=== PATIENT | female | born 1950 | race Caucasian/White ===

== ENCOUNTER → 2021-04-17 | Outpatient (CLI) | payer MEDICARE, MEDICAID ==
[2021-04-17 16:14] LABS: BLOOD UREA NITROGEN 12 MG/DL (7-18); CALCIUM LEVEL 9.7 MG/DL (8.8-10.2); CARBON DIOXIDE LEVEL 29 MEQ/L (21-32); CHLORIDE LEVEL 108 MEQ/L (98-107); CREATININE FOR GFR 0.87 MG/DL (0.55-1.30); FREE T4 1.32 NG/DL (0.76-1.46); GLOMERULAR FILTRATION RATE > 60.0 (>45); GLUCOSE, FASTING 93 MG/DL (70-100); POTASSIUM SERUM 4.2 MEQ/L (3.5-5.1); PROLACTIN 7.8 NG/ML; SODIUM LEVEL 142 MEQ/L (136-145)
== END ==
LOC: M PLALAB 11:16
PROVIDERS: ATTEND Surgery
DX: N64.52 Nipple discharge (principal); Z79.899 Other long term (current) drug therapy

== ENCOUNTER → 2021-05-15 | Outpatient (CLI) | payer MEDICARE, MEDICAID ==
[~2021-05-15] MED LIST: PROHANCE 279.3MG/ML 15ML VIAL As Ordered ONE
--- NOTE | 2021-05-16 16:02 | REP ---
INDICATION: ABN LT MAMMO, DISCHARGE LT NIPPLE. COMPARISON: Mammograms 03/24/2021, 01/03/2021, 12/22/2019, 12/14/2019, 07/15/2018. TECHNIQUE: Three Dot MRI imaging was performed with a dedicated breast coil. Axial, coronal, and sagittal T1 and T2 weighted scans were obtained with and without fat saturation in the usual fashion. The study includes dynamically acquired post gadolinium-enhanced imaging with image subtraction. Maximum intensity projection and multi planar reformation imaging is included as well. This study is interpreted with the aid of Sound [employer], an FDA approved computer aided detection (CAD) software program, on a dedicated breast MRI workstation. The gadolinium enhancement dose is 15 mL of intravenous ProHance. FINDINGS: Moderate fibroglandular tissue is present. No axillary adenopathy is seen bilaterally. A few tiny cysts are seen bilaterally. There is moderate background parenchymal enhancement bilaterally. In the outer aspect of the left breast posteriorly at the level of the nipple (3 o'clock) there is an oval area of spiculated masslike enhancement measuring 10 x 17 x 7 mm. Linear areas of enhancement radiate from this irregular masslike enhancement. The enhancement is mixed persistent, plateau and washout. In the more superior upper outer quadrant of the left breast there are a few areas of linear, ductal somewhat nodular enhancement. A similar area of enhancement is seen within a dilated left retroareolar duct. Correlating with the mammogram, these areas of abnormal enhancement correspond to areas of diffuse pleomorphic, ductal microcalcifications which appear mammographically suspicious. No suspicious abnormality is seen in the right breast. There is a 1.5 cm cyst in the anterior right lobe of the liver in a subcapsular location. IMPRESSION: BI-RADS category 4, suspicious. Posteriorly in the left breast at the 3 o'clock position there is an oval area of spiculated masslike enhancement measuring 10 x 17 x 7 mm. This corresponds to an area on the recent mammogram which demonstrates some architectural distortion and multiple innumerable clustered pleomorphic ductal microcalcifications. There are a few other areas of nodular ductal enhancement throughout the remaining upper outer quadrant of the left breast, including the left retroareolar region within a mildly dilated duct. The mammogram also shows scattered suspicious pleomorphic ductal microcalcifications throughout the upper outer quadrant of the left breast. <Electronically signed by Rafi Morales > 05/16/21 [id number]
== END ==
LOC: M RAD 12:54
PROVIDERS: ATTEND Surgery
DX: R92.8 Other abnormal and inconclusive findings on diagnostic imaging of breast (principal); N64.52 Nipple discharge
CPT/HCPCS: A9576; C8908

== ENCOUNTER → 2021-05-28 | Outpatient (CLI) | payer MEDICARE, MEDICAID ==
[~2021-05-28] MED LIST changes: +AMLO1TAB25 PO; +ASPI81CH33 PO; +ATOR40TA75 PO; +CALCTAB89 PO; +FAMO20TA PO; +FLON1SPR NARES; +IBAN150T6 PO; +LOSA100T50 PO; +MECL-136 PO; +MELO15TA28 PO; +METO100T5 PO; +PANT40TA29 PO; +POTA1TAB14 PO; -PROHANCE 279.3MG/ML 15ML VIAL As Ordered ONE; +REST0.05 OP; +TRAZ-252 PO; +VENTAER INH
[2021-05-28 14:42] VITALS: BP 144/72
--- NOTE | 2021-06-01 00:48 | ROOPDOC ---
[facility] Report Of Operation Report of Operation DATE OF PROCEDURE: 05/28/2021 DIAGNOSIS: Left breast suspicious calcifications PROCEDURE: Left breast stereotactic biopsy x2 with clips placement SURGEON: Luis Lord BLOOD LOSS: minimal Lidocaine 1% LOT [id number] Expiration 09/2024 Sodium Bicarbonate 8.4% LOT [id number] Expiration 08/2021 LEFT LATERAL POSTERIOR BIOPSY Hydromark clip LOT [id number] Expiration 09/2023 SHAPE: 3 Bx device: Stereotactic Mammotome Revolve Dual Vacuum- assisted Biopsy System 10 G LOT [id number] Expiration 02/2017 REF [id number] LEFT LATERAL ANTERIOR BIOPSY Hydromark clip LOT [id number] Expiration 09/2023 SHAPE: 1 Bx device: Stereotactic Mammotome Revolve Dual Vacuum- assisted Biopsy System 10 G LOT [id number] Expiration 03/2024 REF [id number] Informed consent was obtained in the preop area. The most common risk and possible complications including bleeding, hematoma, bruising, infection, injury to surrounding structures were explained to the patient and patient expressed understanding. Patient was taken to the procedure room and placed prone on the [employer] [facility] Prone Breast Biopsy table with the left breast hanging through the table o pening. Left breast was placed into Cranio-Caudal compression and 3Rd Pressman iglesia images were taken. Suspicious calcifications were identified on the iglesia images. We previously agreed that two different areas will be biopsied. Procedure was started with left lateral posterior calcification area. A target was set. CC approach from the bottom was chosen for this procedure. At this time, since we were able to confirm visibility of the suspicious calcifications and patient tolerated prone positioning allowing to proceed with the biopsy, appropriate time out was done stating patients name, date of , and the procedure to be performed. The left breast in CC compression was prepped in the usual fashion. Plain Lidocaine 1% and 8.4% sodium bicarbonate 10:1 mix was used to anesthetize the skin, the biopsy site and tissues along the anticipated biopsy tract. Small skin incision was made with blade number 11. Mammotome 10 G stereotactic breast biopsy device was inserted through the incision and advanced to the pre viously set coordinates marking the target lesion. Pre-fire imaging was taken to assure appropriate positioning. At this time, Mammotome 10 G breast biopsy device was fired and six vacuum assisted biopsies were collected. The biopsy samples were investigated with [employer] system and calcifications were observed. Biopsy samples were then placed in the formaldehyde, marked with patients name and left lateral posterior breast biopsy site, and sent to pathology for evaluation. SHAPE 3 Hydromark clip was placed into the Mammotome biopsy device channel and deployed. Post-deployment imaging was done to assure appropriate clip d eployment. Clip was noted in the left breast at appropriate position. Pressure was held over the biopsy area until hemostasis was obtained. At this point, we set the second target which was anterior. This was nodular and has cluster of calcifications as well. Patient was kept in the previous CC compression. Left breast was re-prepped in the usual fashion. Plain Lidocaine 1% and 8.4% sodium bicarbonate 10:1 mix was used to anesthetize the skin, the biopsy site and tissues along the anticipated biopsy tract. Second small skin incision was made with blade number 11. Mammotome 10 G stereotactic breast biopsy device was inserted through the incision and advanced to the previously set coordinates marking the target lesion. Pre-fire imaging was taken to assure appropriate positioning. At this time, Mammotome 10 G breast biopsy device was fired and six vacuum assisted biopsies were collected. The biopsy samples were investigated with [employer] system and calcifications from the second target lesion were observed. Biopsy samples were then placed in the formaldehyde, marked with patients name and left lateral anterior breast biopsy site, and sent to pathology for evaluation. SHAPE 1 Hydromark clip was placed into the Mammotome biopsy device channel and d eployed. Post-deployment imaging was done to assure appropriate clip deployment. Clip was noted in the left breast at appropriate position. At this point, paddle CC compression of the left breast was released and manual pressure was held to decrease harmonic effect and to assure hemostasis. No bleeding was noted upon removal of the pressure. Patient was slowly repositioned and placed into sitting position, and then assisted off the table. Post-biopsy mammogram of the left breast was obtained and showed two clips in expected positions. Postprocedural dressing was placed. Patient tolerated procedure well and was taken to the recovery unit in stable condition. Discharge instructions were discussed with the patient and patient expressed understanding. LUIS LORD DO Jun 01, 2021 00:48
== END ==
LOC: M WHCPRO 08:10
PROVIDERS: ATTEND Surgery
DX: C50.912 Malignant neoplasm of unspecified site of left female breast (principal)

== ENCOUNTER → 2021-07-14 | Outpatient (CLI) | payer MEDICARE, MEDICAID | LOC: M LABSMTC 11:33 | PROVIDERS: ATTEND Anesthesiology | DX: Z01.818 Encounter for other preprocedural examination (principal); Z11.52 Encounter for screening for COVID-19 ==

== ENCOUNTER → 2021-07-31 | Outpatient (CLI) | payer MEDICARE, MEDICAID ==
[~2021-07-31] MED LIST changes: +LOSA100T45 PO; -LOSA100T50 PO; -REST0.05 OP; +REST0.05 OU
== END ==
LOC: M LABSMTC 09:03
PROVIDERS: ATTEND Anesthesiology
DX: Z01.812 Encounter for preprocedural laboratory examination (principal); Z11.52 Encounter for screening for COVID-19; U07.1 COVID-19

== ENCOUNTER 2021-08-05 07:53 | Observation (INO) | payer MEDICARE, MEDICAID ==
[~2021-08-05] VITALS: Ht 162.6 cm; Wt 78.4 kg
[2021-08-06] MEDS ORDERED: ULTR50TA8 PO ×2 (09:54→10:57)
[2021-08-07 06:00] VITALS: BP 148/71
[2021-08-07 09:33] VITALS: BP 148/70
== END 2021-08-07 12:26 | disposition home or self-care (01) ==
LOC: M SDC 07:53 → M MSPAV 07:54
PROVIDERS: ADMIT Surgery; ATTEND Surgery
DX: D05.12 Intraductal carcinoma in situ of left breast (principal); R50.82 Postprocedural fever; Z86.16 Personal history of COVID-19; I10 Essential (primary) hypertension; E78.5 Hyperlipidemia, unspecified; K21.9 Gastro-esophageal reflux disease without esophagitis; K44.9 Diaphragmatic hernia without obstruction or gangrene; J45.909 Unspecified asthma, uncomplicated; G47.30 Sleep apnea, unspecified; Z99.89 Dependence on other enabling machines and devices; F32.9 Major depressive disorder, single episode, unspecified; H04.129 Dry eye syndrome of unspecified lacrimal gland; G47.00 Insomnia, unspecified; F43.10 Post-traumatic stress disorder, unspecified; M19.90 Unspecified osteoarthritis, unspecified site; M81.0 Age-related osteoporosis without current pathological fracture; Z79.899 Other long term (current) drug therapy; Z79.82 Long term (current) use of aspirin; Z88.0 Allergy status to penicillin; Z88.5 Allergy status to narcotic agent; Z87.891 Personal history of nicotine dependence
CPT/HCPCS: 19303; 36415; 38525; 64450; 71045; 78195; 80048; 85025; 86850; 86900; 86901; 88307; 88309; 88342; 96365; 96372; 96376; C9290; G0378; J0131; J1100; J1170; J1644; J2250; J2370; J2405; J2765; J3010; Q9968

== ENCOUNTER → 2022-08-05 | Outpatient (CLI) | payer MEDICARE, MEDICAID ==
[~2022-08-05] MED LIST changes: +ANAS1TAB2 PO; +CLAR10CA3 PO; +ULTR50TA8 PO; +VITA500075 PO
== END ==
LOC: M WHC 09:46
PROVIDERS: ATTEND Nurse Practitioner Women's Health
DX: D05.12 Intraductal carcinoma in situ of left breast (principal); Z85.3 Personal history of malignant neoplasm of breast; Z90.12 Acquired absence of left breast and nipple
CPT/HCPCS: 77065; G0279